=== PATIENT | female | born 1985 | race Caucasian/White ===

== ENCOUNTER 2024-07-17 21:58 | Emergency (ER) | payer BC, SELFPAY ==
[2024-07-17 22:04] VITALS: BP 151/97
[2024-07-17 22:27] LABS: % Basophils 0.5 % (0-2); % Eosinophils 0.2 % (0-6); % Immature Granulocytes 0.4 % (0-0.5); % Monocytes 5.1 % (1.7-9.3); % Neutrophils 82.8 % (42.2-75.2); Absolute Basophils 0.1 10^3/uL (0-0.2); Absolute Immature Granulocytes 0.1 10^3/uL (0-0.05); Absolute Lymphocytes 1.8 10^3/uL (1.2-3.4); Absolute Monocytes 0.8 10^3/uL (0.1-0.6); Absolute Neutrophils 13.7 10^3/uL (1.4-6.5); Hematocrit 36.4 % (37.0-47.0); Hemoglobin 13.5 g/dL (12.0-16.0); Mean Corp Hgb Conc. 37.1 g/dL (33.0-37.0); Mean Corpuscular Hgb 30.3 pg (27.0-31.0); Mean Corpuscular Volume 81.6 fL (81.0-99.0); Mean Platelet Volume 9.2 fL (7.4-10.4); Nucleated Red Blood Cells % 0 %; Platelet Count 420 10^3/uL (130-400); Red Blood Cell Count 4.46 10^6/uL (4.20-5.40); Red Cell Dist. Width 11.8 % (11.5-14.5); White Blood Cell Count 16.5 10^3/uL (4.8-10.8)
[2024-07-17 22:35] LABS: HCG, Serum Qualitative Screen Negative
[2024-07-17 22:40] LABS: ALT (SGPT) 17 U/L (0-35); AST (SGOT) 23 U/L (14-36); Albumin 4.9 g/dl (3.5-5.0); Alkaline Phosphatase 73 U/L (38-126); Blood Urea Nitrogen 10 mg/dl (7-17); Calcium 10.1 mg/dl (8.4-10.2); Carbon Dioxide 18 mmol/L (22-30); Chloride 104 mmol/L (98-107); Glucose 93 mg/dl (70-99); Lipase 105 U/L (23-300); Potassium 4.4 mmol/L (3.5-5.1); Sodium 138 mmol/L (135-145); Total Bilirubin 0.9 mg/dl (0.2-1.3); Total Protein 7.9 g/dl (6.3-8.2); eGFR > 60.00
--- NOTE | 2024-07-18 01:48 | ED.GENMED ---
History of Present Illness
General
Chief Complaint: Anal/Rectal Problem
Source: patient and spouse
Time Seen by Provider: 07/18/24 00:29
History of Present Illness
History of Present Illness:
38-year-old female who presents with difficulty passing her stool. States she feels like it is stuck. She did try a fleets enema at home without improvement. States she has not had a bowel movement 3 days. She has a lot of pain in her rectum but
also a little bit in her lower pelvis and feel like she is been urinating more than usual due to constipation. Patient was told in the past she had inflammatory bowel disease but is unsure if she was ever truly diagnosed with Crohn's. Patient does
have a medical terminologist. Spouse adds that there was a question of Crohn's disease but patient states she does not think that is true
Past History
Past History
ED Past Medical History: Other (Fatty Liver, Ovarian cyst,); Negative Asthma, HTN, Hypercholesterolemia or NIDDM
ED Past Surgical History: None
Social History
Tobacco: Non-smoker
Alcohol: Occasional
Personal:
Living: with family
Phy Exam
Physical Exam
Physical Exam:
CONSTITUTIONAL Patient alert and oriented to person, place and time. Well-appearing. Vital signs reviewed.
HEAD atraumatic, normocephalic.
EYES eyelids normal to inspection, Extraocular muscles intact, Conjunctiva normal, Sclera normal.
NECK normal range of motion, Trachea midline, no jugular venous distention.
RESPIRATORY CHEST No respiratory distress noted, Chest expansion equal,
ABDOMEN mild pelvic tenderness, bowel sounds normal. No distention.
Rectal hard stool noted in rectal vault. Patient was disimpacted during exam. No obvious bleeding.
BACK normal inspection, no obvious deformities
UPPER EXTREMITY range of motion normal, Motor strength normal, no cyanosis, no edema.
LOWER EXTREMITY range of motion normal, Motor strength normal, no cyanosis, no edema.
NEURO Speech normal, No focal motor deficits, Marj coma scale 15, Memory normal, Cranial Nerves intact to screening exam.
SKIN skin warm, dry, and normal in color.
Course
Orders/Labs/Results
Orders:
Orders
07/17/24 22:11
Test Result ONCE
Abdomen Xray - 1 View [CR Abdomen - 1 View] Urgent
Comment:
Reason For Exam: constipation
07/17/24 22:16
Complete Blood Count/With Diff Urgent
Comprehensive Metabolic Panel Urgent
HCG, Serum Qualitative Screen Urgent
Comment: Notify provider if positive test present
Lipase Urgent
07/18/24 01:14
CT Abd/pelvis W Iv Cont Urgent
Comment:
Reason For Exam: lower abd pain, h/o inflammatory bowel disease
07/18/24 01:52
Urinalysis Reflex To Culture Urgent
07/18/24 02:05
Ondansetron Injectable [Zofran] 4 mg IV NOW STA
Abnormal Lab Results
07/17/24
22:16
WBC 16.5 H 10^3/uL
(4.8-10.8)
Hct 36.4 L %
(37.0-47.0)
MCHC 37.1 H g/dL
(33.0-37.0)
Plt Count 420 H 10^3/uL
(130-400)
Abs Immat Gran (auto) 0.1 H 10^3/uL
(0-0.05)
Absolute Neuts (auto) 13.7 H 10^3/uL
(1.4-6.5)
Absolute Monos (auto) 0.8 H 10^3/uL
(0.1-0.6)
Neutrophils % 82.8 H %
(42.2-75.2)
Lymphocytes % 11.0 L %
(20.5-51.1)
Carbon Dioxide 18 L mmol/L
(22-30)
07/17/24 22:16
07/17/24 22:16
Vital Signs
Initial and Last Documented VS:
Initial Vital Signs
Temp Pulse Resp BP Pulse Ox
98.5 F 93 16 151/97 99
07/17/24 22:04 07/17/24 22:04 07/17/24 22:04 07/17/24 22:04 07/17/24 22:04
Last Documented Vital Signs
Temp Pulse Resp BP Pulse Ox
98.5 F 93 16 151/97 99
07/17/24 22:04 07/17/24 22:04 07/17/24 22:04 07/17/24 22:04 07/17/24 22:04
MDM/Problems Addressed
MDM/Problems Addressed:
Constipation, rectal impaction
*Radiology
Radiology exam reviewed: preliminary read by ED provider (No obvious free air) and radiology read reviewed
*Pulse Oximetry
Patient hypoxic: no
*Critical Care Note
Total Time (30-74mins, 75-104mins- exclusive of procedures): Not Applicable
Data Reviewed
Source: patient and spouse
Prescriptions/Medications Considered But Not Given:
Consider antibiotics with CT negative
Patient Management
Escalation/DeEscalation of care consider admission/obs:
Patient appears well. Overall abdomen CT negative and does feel better. Labs grossly unremarkable with exception of leukocytosis. Does feel better after enema and evacuation. Okay for discharge and outpatient follow-up. Recommended MiraLAX
twice a day for the next 4 days
ED Attending Note
-
Portions of this chart may have been created with voice recognition software.� Occasional wrong word or��sound alike� substitutions may have occurred due to the inherent limitations of voice recognition software.
Discharge Plan
Departure
Patient Disposition: Home (Routine Discharge)
Date of Disposition: 07/18/24
Time of Disposition: 02:55
Patient with high blood pressure during this ER visit?: Yes
Discharge Problem:
Fecal impaction
Instructions: Constipation, Adult (DC)
Prescriptions:
No Action
omeprazole 40 MG capsule,delayed release(DR/EC)
40 mg PO DAILY
levocetirizine [Xyzal] 5 MG tablet
5 mg PO DAILY
hydrocodone-acetaminophen 1 TABLET tablet
1 - 2 tab PO Q4HPRN PRN (Reason: moderate to severe pain) Qty: 20 0RF
Referrals:
Ronal Temple MD [Family Provider] -
Activity Restrictions/Additional Instructions:
Please use MiraLAX twice a day for the next 5 days. Please drink plenty fluids and see your medical terminologist or primary care doctor in the next 1 week for follow-up and reevaluation. Return today for worsening pain, fevers, bloody stools or any
other concerns
Interventions
Interventions:
*Risk Screen - Suicide Last Done: 07/17/24 22:04
*Neglect/Abuse Screening Last Done: 07/17/24 22:04
CN-Hkzsnd-Cmfmlijqoa Assessment Last Done: 07/18/24 02:15
ED-Skin Assessment Last Done: 07/18/24 02:14
Discharge Date and Time
Print Language: NAURUAN
[2024-07-18] MEDS: ZOFRAN 4 MG IV (02:25)
[2024-07-18 03:58] VITALS: BP 104/76
== END 2024-07-18 04:08 | disposition home or self-care (01) ==
LOC: EMR 21:58
PROVIDERS: EMERGENCY PHYSICIAN Emergency Medicine; FAMILY PHYSICIAN Psychiatry & Neurology Neurology
DX: K56.41 Fecal impaction (principal)
CPT/HCPCS: 99284; 96374; 74018; 74177; 80053; 83690; 84703; 85025; Q9967